=== PATIENT | female | born 1935 | race Caucasian/White ===

== ENCOUNTER 2017-07-22 12:30 | Observation (INO) ==
[2017-07-22 13:57] LABS: Basophils % 0.6 %; Hematocrit 43.8 % (35.3-44.9); Hemoglobin 14.4 g/dL (11.5-15.4); Immature Granulocytes % 0.4 % (0-4); Lymphocytes # 0.4 K/mcL (0.6-4.6); Lymphocytes % 6.4 %; Mean Corpuscular HGB Conc 32.9 g/dL (31.6-35.5); Mean Corpuscular Hemoglobin 30.3 pg (28.0-33.3); Mean Corpuscular Volume 92.2 fL (83.0-100.0); Mean Platelet Volume 10.6 fL (9.4-12.4); Monocytes # 0.5 K/mcL (0.0-1.3); Monocytes % 7.3 %; Neutrophils # 5.9 K/mcL (1.6-8.9); Platelet Count 249 K/mcL (140-400); Red Blood Count 4.75 M/mcL (3.82-4.97); Red Cell Distribution Width 14.2 % (11.5-14.5); Segmented Neutrophils % 85.3 %
[2017-07-22 14:21] LABS: Calcium 9.3 mg/dL (8.6-10.3)
[2017-07-22 14:23] LABS: Troponin I 0.06 ng/mL (< 0.04)
[2017-07-22 15:10] LABS: Bilirubin,Urine Negative (Negative); Blood,Urine Moderate (Negative); Clarity,Urine Cloudy (Clear); Color,Urine Yellow (Yellow); Glucose,Urine (UA) Normal (Normal); Ketones,Urine Negative (Negative); Leukocyte Esterase,Urine Negative (Negative); Nitrite,Urine Negative (Negative); Protein,Urine Negative (Neg-Trace); Specific Gravity,Urine 1.022 (1.010-1.025); Urobilinogen,Urine Normal (Normal)
[2017-07-22 15:14] LABS: Bacteria,Urine Many per hpf (None-Few); Hyaline Casts,Urine None Seen per lpf (None-Few); Squamous Epithelial Cell,Urine Many per lpf (None-Few)
[2017-07-22 15:21] LABS: INR 1.9; Prothrombin Time 21.1 Seconds (9.4-12.1)
[2017-07-22 15:23] LABS: Activated Partial Thrombo Time 34.2 Seconds (26.0-36.0)
[2017-07-22] MEDS ORDERED: Aspirin 81 MG TAB.CHEW PO STA (15:25)
--- NOTE | 2017-07-22 16:28 | Emergency Department Note ---
Disposition Clinical Impression: Elevated troponin, Weakness Chest pain Qualifiers: Chest pain type: unspecified Qualified Code(s): R07.9 - Chest pain, unspecified Disposition: Admitted As Inpatient Condition: Good Time of Disposition: 16:54 General Adult HPI - General Chief complaint: ED Weakness Stated complaint: "Not feeling well" Time Seen by Provider: 07/22/17 14:29 Source: patient, family Limitations: altered mental status Nursing Notes Reviewed: Yes Vital Signs Reviewed: Yes - History of Present Illness HPI Narrative: Patient presents emergency room in the care of family member for evaluation of generalized malaise and weakness. Patient has been describing not feeling well over the last several days. After discussion with the family and the patient she does disclose that she has had intermittent chest pain no shortness of breath no nausea no vomiting no diarrhea. Onset (ago): day(s) Radiation: non-radiation Pain Scale: 0 Improves with: nothing Worsens with: nothing Associated symptoms: Reports: denies other symptoms - Related Data Home Medications Medication Instructions Recorded Confirmed FLUoxetine HCl [Prozac] 40 mg PO DAILY 02/03/16 07/22/17 Memantine HCl 10 mg PO BID 02/03/16 07/22/17 Metoprolol Succinate [Toprol Xl] 12.5 mg PO DAILY 02/03/16 07/22/17 Potassium Chloride [K-Tab ER] 40 meq PO DAILY 02/03/16 07/22/17 Simvastatin [Zocor] 40 mg PO HS 02/03/16 07/22/17 glipiZIDE [Glipizide ER] 10 mg PO DAILY 02/03/16 07/22/17 metFORMIN [Glucophage] 500 mg PO DAILY 02/03/16 07/22/17 Furosemide [Lasix] 20 mg PO DAILY 07/22/17 07/22/17 Warfarin [Coumadin] 1 mg PO Q72H 07/22/17 07/22/17 Warfarin [Coumadin] 1 mg PO Q72H 07/22/17 07/22/17 Warfarin [Coumadin] 2 mg PO Q72H 07/22/17 07/22/17 Allergies Allergy/AdvReac Type Severity Reaction Status Date / Time Sulfa (Sulfonamide Allergy Hallucinati Verified 02/03/16 10:23 Antibiotics) ng All systems ED: reviewed and negative except as stated. Review of Systems: As Per HPI Constitutional: Denies: fever, chills, weakness Cardiovascular: Reports: chest pain. Denies: palpitations, dyspnea on exertion , orthopnea, edema Respiratory: Denies: cough, dyspnea, wheezes Gastrointestinal: Denies: abdominal pain, nausea, vomiting Genitourinary: Denies: urgency, dysuria, frequency Musculoskeletal: Denies: back pain, neck pain Neurological: Denies: headache Past Medical History - Past Medical History Attestation: Yes The following information was validated with the patient. Source: patient Medical history: Reports: non-contributory, atrial fibrillation, CHF, coronary artery disease, CVA, dementia, diabetes, hyperlipidemia, hypertension, myocardial infarction Psychiatric history: Reports: no psych history - Social History Smoking Status: Former smoker Smokeless Tobacco Status: No Alcohol use: Reports: none Drug use: Reports: none Physical Exam - General Limitations: altered mental status General appearance: alert, in no apparent distress - ENT ENT exam: normal exam, normal oropharynx, mucous membranes moist - Neck Neck exam: Present: normal inspection, full ROM, trachea midline. Absent: tenderness, meningismus, lymphadenopathy - Chest Chest inspection: Present: normal inspection, symmetric chest wall rise. Absent : tenderness - Respiratory Respiratory exam: Present: normal lung sounds bilaterally. Absent: respiratory distress, wheezes, accessory muscle use - Cardiovascular Cardiovascular exam: Present: regular rate, normal rhythm, normal heart sounds - Abdominal Exam Abdominal exam: Present: soft, Non-Tender, normal bowel sounds. Absent: tenderness, distention, guarding, rebound, rigidity, Montaño's sign, Rovsing's sign, tenderness at McBurney's Point - Extremities Exam Extremities exam: Present: normal inspection - Back Exam Back exam: Present: normal inspection, full ROM - Neurological Exam Neurological exam: Present: alert, oriented X3, CN II-XII intact - Skin Skin exam: Present: warm, dry, intact, normal color Course Course Narrative: Patient seen and examined the time of arrival. See history of present illness. 81-year-old female presents to the emergency room for evaluation of chest pain and generalized malaise. Patient describes weakness in symptoms over the last several days. Patient is difficult to communicate with because she does not interact well. This is baseline per the family who is with her at the bedside. Patient denies any other trauma or injuries. The family is with her as she is describe some intermittent chest pain over the last several days. When I conversed with her she does answer questions and appears to be appropriate at this time. She denies any shortness of breath when she has had chest pain. She denies any nausea vomiting or diarrhea. She falls commands appropriately. On physical exam her pupils are equal round reactive to light her extraocular muscles are intact. Her lungs are clear heart is regular abdomen is soft nontender nondistended with no guarding no rigidity. She has no signs of pitting edema or swelling. Patient is otherwise resting comfortably in the bed no apparent distress at this time. Patient was brought back to the room here in the emergency department approximately 2 hours after she arrived here. Patient was found to have an elevated troponin by screening labs were started out the triage process. Her troponin was 0.06. Patient's EKG was collected just as she arrived to the emergency had. This was 2 hours after arrival. EKG shows ischemic changes and multiple leads. It is consistent with her previous EKG but she does not have any acute signs of ST segment elevation. I did send it for about the on-call auto travel counselor. He agrees and does not appear to be any acute signs of a STEMI but there was concern for ischemia. Patient is on Coumadin with an INR of 1.9. Labs are otherwise unremarkable this point urine does not show any acute signs of infection considering she does not have symptoms. There is gross contamination. Patient will be admitted for definitive management of what appears to be chest pain with unknown etiology at this time. Patient had CT imaging of the head and chest x-ray completed with no acute pathology noted that time as well. Patient is otherwise currently stable. - Reevaluation(s) Reevaluation #1: No critical care applied to this patient's treatment course at this time. Hospitalist Dr. Vasquez I reviewed the patient's presentation symptoms of medical history. They have no other recommendations or concerns at this time. Admission process will be completed at this point for definitive management of cardiac evaluation. Time: 16:52 Vital Signs Temperature 97.5 F L 07/22/17 12:51 Pulse Rate 66 07/22/17 12:51 Respiratory Rate 18 07/22/17 12:51 Blood Pressure 126/77 07/22/17 12:51 O2 Sat by Pulse Oximetry 96 07/22/17 12:51 Temperature 97.5 F L 07/22/17 12:51 Pulse Rate 66 07/22/17 12:51 Respiratory Rate 18 07/22/17 12:51 Blood Pressure 126/77 07/22/17 12:51 O2 Sat by Pulse Oximetry 96 07/22/17 12:51 Oxygen Delivery Oxygen Delivery Room Air Medical Decision Making - MDM Narrative Medical decision making narrative: Chest pain, generalized malaise - Medical Records Medical records reviewed: Yes I reviewed the patient's medical records. - Lab Data Lab results reviewed: Yes I reviewed the patient's lab results. Result diagrams: 07/22/17 13:31 07/22/17 13:31 Lab Results 07/22/17 07/22/17 07/22/17 Range/Units 13:31 13:31 13:31 WBC 6.9 (4.3-11.1) K/mcL RBC 4.75 (3.82-4.97) M/mcL Hgb 14.4 (11.5-15.4) g/dL Hct 43.8 (35.3-44.9) % MCV 92.2 (83.0-100.0) fL MCH 30.3 (28.0-33.3) pg MCHC 32.9 (31.6-35.5) g/dL RDW 14.2 (11.5-14.5) % Plt Count 249 (140-400) K/mcL MPV 10.6 (9.4-12.4) fL Immature Gran % 0.4 (0-4) % Seg Neutrophils % 85.3 % Lymphocytes % 6.4 % Monocytes % 7.3 % Eosinophils % 0.0 % Basophils % 0.6 % Neutrophils # 5.9 (1.6-8.9) K/mcL Lymphocytes # 0.4 L (0.6-4.6) K/mcL Monocytes # 0.5 (0.0-1.3) K/mcL Eosinophils # 0.0 (0.0-0.6) K/mcL Basophils # 0.0 (0.0-0.2) K/mcL PT 21.1 H (9.4-12.1) Seconds INR 1.9 APTT 34.2 (26.0-36.0) Seconds Sodium 137 (136-145) mEq/L Potassium 4.0 (3.5-5.1) mEq/L Chloride 104 (98-107) mEq/L Carbon Dioxide 23 (23-29) mEq/L BUN 18 (8-23) mg/dL Creatinine 1.23 H (0.60-1.20) mg/dL Est GFR ( Amer) 51 L (> 60) Est GFR (Non-Af Amer) 42 L (> 60) BUN/Creatinine Ratio 15 (6-26) Glucose 219 H (70-105) mg/dL Calculated Osmolality 293 (280-300) Calcium 9.3 (8.6-10.3) mg/dL Troponin I 0.06 H* (< 0.04) ng/mL Urine Color (Yellow) Urine Clarity (Clear) Urine pH (5.0-8.0) pH Units Ur Specific [place] (1.010-1.025) Urine Protein (Neg-Trace) mg/dL Urine Glucose (UA) (Normal) mg/dL Urine Ketones (Negative) mg/dL Urine Blood (Negative) Urine Nitrite (Negative) Urine Bilirubin (Negative) Urine Urobilinogen (Normal) mg/dL Ur Leukocyte Esterase (Negative) Urine Microscopic RBC (0-3) per hpf Urine Microscopic WBC (0-3) per hpf Ur Squamous Epith Cells (None-Few) per lpf Urine Bacteria (None-Few) per hpf Hyaline Casts (None-Few) per lpf Ur Culture Indicated? (NO) 07/22/17 Range/Units 15:05 WBC (4.3-11.1) K/mcL RBC (3.82-4.97) M/mcL Hgb (11.5-15.4) g/dL Hct (35.3-44.9) % MCV (83.0-100.0) fL MCH (28.0-33.3) pg MCHC (31.6-35.5) g/dL RDW (11.5-14.5) % Plt Count (140-400) K/mcL MPV (9.4-12.4) fL Immature Gran % (0-4) % Seg Neutrophils % % Lymphocytes % % Monocytes % % Eosinophils % % Basophils % % Neutrophils # (1.6-8.9) K/mcL Lymphocytes # (0.6-4.6) K/mcL Monocytes # (0.0-1.3) K/mcL Eosinophils # (0.0-0.6) K/mcL Basophils # (0.0-0.2) K/mcL PT (9.4-12.1) Seconds INR APTT (26.0-36.0) Seconds Sodium (136-145) mEq/L Potassium (3.5-5.1) mEq/L Chloride (98-107) mEq/L Carbon Dioxide (23-29) mEq/L BUN (8-23) mg/dL Creatinine (0.60-1.20) mg/dL Est GFR ( Amer) (> 60) Est GFR (Non-Af Amer) (> 60) BUN/Creatinine Ratio (6-26) Glucose (70-105) mg/dL Calculated Osmolality (280-300) Calcium (8.6-10.3) mg/dL Troponin I (< 0.04) ng/mL Urine Color Yellow (Yellow) Urine Clarity Cloudy A (Clear) Urine pH 5.0 (5.0-8.0) pH Units Ur Specific [place] 1.022 (1.010-1.025) Urine Protein Negative (Neg-Trace) mg/dL Urine Glucose (UA) Normal (Normal) mg/dL Urine Ketones Negative (Negative) mg/dL Urine Blood Moderate H (Negative) Urine Nitrite Negative (Negative) Urine Bilirubin Negative (Negative) Urine Urobilinogen Normal (Normal) mg/dL Ur Leukocyte Esterase Negative (Negative) Urine Microscopic RBC 5-15 H (0-3) per hpf Urine Microscopic WBC 3-5 H (0-3) per hpf Ur Squamous Epith Cells Many H (None-Few) per lpf Urine Bacteria Many H (None-Few) per hpf Hyaline Casts None Seen (None-Few) per lpf Ur Culture Indicated? NO (NO) - Radiology Data Radiology results reviewed: Yes I reviewed the patient's radiology results. Chest x-ray and CT that are unremarkable this time for acute intracranial or intrathoracic related pathology - EKG Data EKG #1 EKG attestation: Yes I reviewed and interpreted this EKG. EKG results narrative: EKG shows atrial fibrillation. There is progression of ST segment depression in multiple leads including 1,2 V2 V3 V4 V5 and V6. There is slight elevation in aVR which is consistent with previous. EKG was reviewed from previous EKG on 06/28/16 with similar morphology. No acute signs of ST segment elevation. Intervals are within normal limits. QRS duration is 112. QTC is 437. [place] appears to be stable..
[2017-07-22] MEDS ORDERED: Acetaminophen 325 MG TABLET PO PRN (19:50)
[2017-07-22] MEDS ORDERED: Naloxone 0.4 MG/ML INJ IVP PRN (19:50)
--- NOTE | 2017-07-22 21:03 | Internal Med History&Physical ---
Date of Encounter: 07/22/17 Time of Encounter: 18:40 Assessment and Plan (1) Chest pain Current visit: Yes Status: Acute Intermittent; mild Troponin leak; EKG reviewed independently- normal sinus rhythm with diffuse T wave inversions in lateral and precordial leads- old change; case d/w Cardiology by ER physician, recommend to continue ASA, beta leandro and Coumadin; serial Troponins and Telemetry monitoring; check lipid profile; check TTE; Qualifiers: Chest pain type: unspecified Qualified Code(s): R07.9 - Chest pain, unspecified (2) Weakness Current visit: Yes Status: Acute likely dehydration due to poor oral intake; start gentle IV hydration; PT/OT evaluation; fall precautions and supportive care; (3) Atrial fibrillation Current visit: Yes Status: Chronic continue Telemetry monitoring; continue beta leandro and anticoagulation with Coumadin; Qualifiers: Atrial fibrillation type: paroxysmal Qualified Code(s): I48.0 - Paroxysmal atrial fibrillation (4) Coronary artery disease Current visit: Yes Status: Chronic continue ASA, Coumadin, beta leandro and statin; Qualifiers: Coronary Disease-Associated Artery/Lesion type: bypass graft [place] vs. transplanted heart: [place] heart Associated angina: without angina Qualified Code(s): I25.810 - Atherosclerosis of coronary artery bypass graft(s) without angina pectoris (5) Essential hypertension Current visit: Yes Status: Chronic BP acceptable; hold diuretics due to weakness; (6) Hyperlipidemia Current visit: Yes Status: Chronic Qualifiers: Hyperlipidemia type: unspecified Qualified Code(s): E78.5 - Hyperlipidemia , unspecified (7) Diabetes mellitus Current visit: Yes Status: Chronic Blood sugar on BMP slightly elevated; continue Accucheck blood glucose monitoring with sliding scale insulin as needed; hold oral hypoglycemics for now ; diabetic diet; Qualifiers: Diabetes mellitus type: type 2 Diabetes mellitus long-term insulin use: without wic site coordinator use Diabetes mellitus complication status: with hyperglycemia Qualified Code(s): E11.65 - Type 2 diabetes mellitus with hyperglycemia (8) Dementia Current visit: Yes Status: Chronic Qualifiers: Dementia type: Alzheimer's disease Alzheimer's disease onset: late-onset Dementia behavioral disturbance: without behavioral disturbance Qualified Code (s): G30.1 - Alzheimer's disease with late onset; F02.80 - Dementia in other diseases classified elsewhere without behavioral disturbance; F02.80 - Dementia in other diseases classified elsewhere without behavioral disturbance; F02.80 - Dementia in other diseases classified elsewhere without behavioral disturbance (9) Peripheral arterial disease Current visit: Yes Status: Chronic (10) CKD (chronic kidney disease) Current visit: Yes Status: Suspected likely has CKD-stage 3; slightly worse creatinine; continue IV hydration, hold Metformin and Lasix; monitor closely; Qualifiers: Chronic kidney disease stage: stage 3 (moderate) Qualified Code(s): N18.3 - Chronic kidney disease, stage 3 (moderate) Internal Medicine - H&P: HPI Chief complaint: Weakness Admitted From: Emergency Dept Plans for Post Hospital Care: Home History of present illness: Ms. Diaz is a 81 year old female with history of atrial fibrillation, coronary artery disease, who was brought in by family with complaints of generalized weakness and malaise. Patient is unable to provide history due to underlying dementia, which is obtained with the help of her daughter at bedside. Patient is ADL dependent and requires 24-hour supervision at home, lives with her daughter, ambulates with walker. She has been reporting generalized weakness and malaise for the last few days, unable to ambulate or do her transfers without help. She reported intermittent retrosternal chest pain, cannot elaborate further. She has associated poor appetite, lethargy and not feeling well. She has intermittent cough with clear mucus and some shortness of breath. No fever, chills, nausea, vomiting or diarrhea. Past Med Surg Social Fam HX - Past Medical History Medical history: atrial fibrillation, CHF, coronary artery disease, CVA, dementia, diabetes, hyperlipidemia, hypertension, myocardial infarction, peripheral artery disease Psychiatric history: no psych history - Past Surgical History Surgical History: coronary bypass (CABG), hysterectomy, LE stent (s) - Social History Smoking Status: Former smoker Smokeless Tobacco Status: No Alcohol use: none Drug use: none Occupational status: retired Current living situation: Home, With Family Activity Level: Uses cane/walker Recent Out of Country Travel Within the Last 8 Weeks: No Exposure or Possible Exposure to Illness During Travel: No - Additional Family History Additional family history: Noncontributory Internal Medicine - H&P: Meds FLUoxetine HCl [Prozac] 40 mg PO DAILY 02/03/16 [History] Memantine HCl 10 mg PO BID 02/03/16 [History] Metoprolol Succinate [Toprol Xl] 12.5 mg PO DAILY 02/03/16 [History] Potassium Chloride [K-Tab ER] 40 meq PO DAILY 02/03/16 [History] Simvastatin [Zocor] 40 mg PO HS 02/03/16 [History] glipiZIDE [Glipizide ER] 10 mg PO DAILY 02/03/16 [History] metFORMIN [Glucophage] 500 mg PO DAILY 02/03/16 [History] Furosemide [Lasix] 20 mg PO DAILY 07/22/17 [History] Warfarin [Coumadin] 1 mg PO Q72H 07/22/17 [History] Warfarin [Coumadin] 1 mg PO Q72H 07/22/17 [History] Warfarin [Coumadin] 2 mg PO Q72H 07/22/17 [History] 3 Allergy/AdvReac Type Severity Reaction Status Date / Time Sulfa (Sulfonamide Allergy Hallucinati Verified 02/03/16 10:23 Antibiotics) ng All Systems PM: A 10-system review of systems was performed and is negative for pertinent findings except as documented above in the HPI. - Constitutional Constitutional: anorexia, fatigue, malaise, weakness - EENT Eyes: no change in vision, no discharge, no pain, no photophobia Ears: no ear discharge, no ear pain, no tinnitus Nose, mouth and throat: no dysphagia, no nasal discharge, no neck pain, no sore throat - Cardiovascular Cardiovascular ROS IM: chest pain, dyspnea - Respiratory Respiratory: cough - Gastrointestinal Gastrointestinal: no abdominal pain, no diarrhea, no hematemesis, no hematochezia, no melena, no nausea, no vomiting - Genitourinary Genitourinary: no change in urinary stream, no dysuria, no flank pain, no hematuria - Musculoskeletal Musculoskeletal ROS IM: no numbness, no tingling - Integumentary Integumentary IM: no rash, no unusual bruising - Neurological Neurological ROS: no confusion, no convulsions, no focal weakness, no numbness, no tingling, no tremor(s) - Hematologic/Lymphatic Hematologic/Lymphatic: no easy bruising - Constitutional Vitals: Temp Pulse Resp BP Pulse Ox 99.0 F 54 16 139/98 97 07/22/17 19:33 07/22/17 19:33 07/22/17 19:33 07/22/17 19:33 07/22/17 19:33 General appearance: Present: A&O X 1. Absent: answers questions appropriately - Respiratory Respiratory exam: Present: CTAB. Absent: accessory muscle use, rales, rhonchi, wheezes - Cardiovascular Cardiovascular exam: Present: RRR, +S1, +S2. Absent: diastolic murmur, gallop, rubs, systolic murmur - GI/Abdominal GI/Abdominal exam: Present: normal bowel sounds, soft, no peritoneal signs. Absent: distended, tenderness - Extremities Exam Extremities exam: Present: full ROM, pedal edema (trace), warm, radial pulses palpable and symmetrical. Absent: calf tenderness, cyanotic - Neurological Exam Neurological exam: Present: CN II-XII intact, no focal deficits (diffusely decreased motor power B/L). Absent: pronater drift, facial droop, speech deficit Internal Med - H&P Results - Labs CBC & Chem 7: 07/22/17 13:31 07/22/17 13:31 Labs: Cardiac Enzymes 07/22/17 Range/Units 20:12 Troponin I 0.04 H* (< 0.04) ng/mL
[2017-07-22] MEDS ORDERED: *HR* Warfarin 1 MG TABLET PO ONE (21:15)
[2017-07-22] MEDS: Ringers Solution, Lactated 1,000 ML IVC SCH (21:52)
[2017-07-23 02:10] LABS: Prothrombin Time 22.3 Seconds (9.4-12.1)
[2017-07-23 02:21] LABS: Calcium 9.3 mg/dL (8.6-10.3); Chol/HDL Ratio 4.1 (0-4.9); Magnesium 1.9 mg/dL (1.6-2.6); Potassium 3.7 mEq/L (3.5-5.1)
[2017-07-23 05:48] LABS: Basophils # 0.1 K/mcL (0.0-0.2); Basophils % 0.7 %; Eosinophils % 0.3 %; Hematocrit 41.2 % (35.3-44.9); Hemoglobin 13.1 g/dL (11.5-15.4); Immature Granulocytes % 0.5 % (0-4); Lymphocytes # 0.7 K/mcL (0.6-4.6); Lymphocytes % 9.2 %; Mean Corpuscular HGB Conc 31.8 g/dL (31.6-35.5); Mean Corpuscular Hemoglobin 29.6 pg (28.0-33.3); Mean Platelet Volume 10.7 fL (9.4-12.4); Monocytes # 0.7 K/mcL (0.0-1.3); Monocytes % 9.5 %; Neutrophils # 5.9 K/mcL (1.6-8.9); Platelet Count 218 K/mcL (140-400); Red Blood Count 4.43 M/mcL (3.82-4.97); Red Cell Distribution Width 14.2 % (11.5-14.5); Segmented Neutrophils % 79.8 %
[2017-07-23] MEDS ORDERED: amLODIPine 5 MG TABLET PO SCH (09:15)
--- NOTE | 2017-07-23 09:19 | Internal Med Progress Note ---
<BryanKobi - Last Filed: 07/23/17 13:20> Date of Encounter: 07/23/17 Time of Encounter: 09:00 - Assessment and plan (1) Chest pain Current Visit: Yes Status: Acute Assessment and plan: Intermittent; mild Troponin leak; EKG reviewed independently- normal sinus rhythm with diffuse T wave inversions in lateral and precordial leads- old change; case d/w Cardiology by ER physician, recommend to continue ASA, beta leandro and Coumadin; serial Troponins and Telemetry monitoring; Update: Echocardiogram shows LVEF 40-45%. LV systolic dysfunction with regional variations - hypokinesis of the inferolateral wall. Qualifiers: Chest pain type: unspecified Qualified Code(s): R07.9 - Chest pain, unspecified (2) Weakness Current Visit: Yes Status: Acute Assessment and plan: Likely dehydration due to poor oral intake; start gentle IV hydration; PT/OT evaluation; fall precautions and supportive care; (3) Atrial fibrillation Current Visit: Yes Status: Chronic Assessment and plan: continue Telemetry monitoring; continue beta leandro and anticoagulation with Coumadin; Qualifiers: Atrial fibrillation type: paroxysmal Qualified Code(s): I48.0 - Paroxysmal atrial fibrillation (4) Coronary artery disease Current Visit: Yes Status: Chronic Assessment and plan: continue ASA, Coumadin, beta leandro and statin; Qualifiers: Coronary Disease-Associated Artery/Lesion type: bypass graft [place] vs. transplanted heart: [place] heart Associated angina: without angina Qualified Code(s): I25.810 - Atherosclerosis of coronary artery bypass graft(s) without angina pectoris (5) Essential hypertension Current Visit: Yes Status: Chronic Assessment and plan: Blood pressure elevated 158/87. Lasix on hold due to creatinine function. Patient does not seem to be fluid overloaded. - We will start amlodipine 5 mg by mouth daily. (6) Hyperlipidemia Current Visit: Yes Status: Chronic Assessment and plan: LDL of 101. Qualifiers: Hyperlipidemia type: unspecified Qualified Code(s): E78.5 - Hyperlipidemia , unspecified (7) Diabetes mellitus Current Visit: Yes Status: Chronic Assessment and plan: Glucose controlled at 81. - continue Accucheck blood glucose monitoring with sliding scale insulin as needed; hold oral hypoglycemics for now; diabetic diet; Qualifiers: Diabetes mellitus type: type 2 Diabetes mellitus prison insulin use: without prison use Diabetes mellitus complication status: with hyperglycemia Qualified Code(s): E11.65 - Type 2 diabetes mellitus with hyperglycemia (8) Dementia Current Visit: Yes Status: Chronic Qualifiers: Dementia type: Alzheimer's disease Alzheimer's disease onset: late-onset Dementia behavioral disturbance: without behavioral disturbance Qualified Code (s): G30.1 - Alzheimer's disease with late onset; F02.80 - Dementia in other diseases classified elsewhere without behavioral disturbance; F02.80 - Dementia in other diseases classified elsewhere without behavioral disturbance; F02.80 - Dementia in other diseases classified elsewhere without behavioral disturbance (9) CKD (chronic kidney disease) Current Visit: Yes Status: Suspected Assessment and plan: Creatinine function improved from 1.23 down to 1.10. - continue IV hydration, hold Metformin and Lasix; monitor closely Qualifiers: Chronic kidney disease stage: stage 3 (moderate) Qualified Code(s): N18.3 - Chronic kidney disease, stage 3 (moderate) (10) DVT prophylaxis Current Visit: Yes Status: Acute Assessment and plan: On Coumadin. - Subjective Interval history: Seen today patient was in A&OX1. She denies any chest pains, shortness of breath , fever, chills, or abdominal pain. - Constitutional Vitals: Temp Pulse Resp BP Pulse Ox 98.0 F 67 15 158/87 92 07/23/17 06:30 07/23/17 06:30 07/23/17 06:30 07/23/17 06:30 07/23/17 06:59 General appearance: Present: A&O X 1, no acute distress. Absent: answers questions appropriately - Respiratory Respiratory exam: Present: CTAB. Absent: accessory muscle use, rales, rhonchi, wheezes - Cardiovascular Cardiovascular exam: Present: RRR, +S1, +S2. Absent: diastolic murmur, gallop, rubs, systolic murmur - GI/Abdominal GI/Abdominal exam: Present: normal bowel sounds, soft, no peritoneal signs. Absent: distended, tenderness - Extremities Exam Extremities exam: Present: warm, radial pulses palpable and symmetrical. Absent : calf tenderness, cyanotic, pedal edema Internal Medicine: Result - Labs CBC & Chem 7: 07/23/17 04:44 07/23/17 01:40 Labs: Short CBC 07/23/17 Range/Units 04:44 WBC 7.4 (4.3-11.1) K/mcL Hgb 13.1 (11.5-15.4) g/dL Hct 41.2 (35.3-44.9) % Plt Count 218 (140-400) K/mcL Neutrophils # 5.9 (1.6-8.9) K/mcL BMP 07/23/17 01:40 Sodium 138 Potassium 3.7 Chloride 107 Carbon Dioxide 22 L BUN 23 Creatinine 1.10 Glucose 81 Calcium 9.3 Cardiac Enzymes 07/22/17 07/23/17 07/23/17 Range/Units 20:12 01:40 07:31 Troponin I 0.04 H* 0.05 H* 0.05 H* (< 0.04) ng/mL - ABG Interpretation ABG results: PT/INR, D-dimer PT 22.3 Seconds (9.4-12.1) H 07/23/17 01:40 Consult Discharge Plan - Plan Referrals: Óscar Gonzalez Jr, MD [Primary Care Provider] - <Carlin Castle H - Last Filed: 07/23/17 14:11> Date of Encounter: 07/23/17 - Constitutional Vitals: Temp Pulse Resp BP Pulse Ox 97.4 F L 71 15 155/86 93 07/23/17 10:00 07/23/17 10:00 07/23/17 10:00 07/23/17 10:00 07/23/17 10:00 Internal Medicine: Result - Labs CBC & Chem 7: 07/23/17 04:44 07/23/17 01:40 - ABG Interpretation ABG results: PT/INR, D-dimer PT 22.3 Seconds (9.4-12.1) H 07/23/17 01:40 - Impressions Impressions Echocardiogram 07/23/17 10:00 Impressions: LVEF 40-45%. LV systolic dysfunction with regional variations - hypokinesis of the inferolateral wall. Moderate concentric left ventricular hypertrophy. Mildly dilated left ventricle. Normal right ventricular structure and function. Moderate mitral regurgitation. Mild tricuspid regurgitation. Mild pulmonary hypertension. Left Ventricular Wall Motion: Rest Echo Findings The apex, apical inferior, mid inferior, basal inferior, apical anterior, mid anterior, basal anterior, apical septal, mid inferior septal, basal inferior septal, apical lateral, mid anterior lateral, basal anterior lateral, mid anterior septal, mid inferior lateral, basal anterior septal and basal inferior lateral [place] were hypokinetic. Findings: Study Quality * Technically adequate exam. ECG Findings * Atrial fibrillation. Left Ventricle * LVEF 40-45%. * Moderate concentric left ventricular hypertrophy. * Mildly dilated left ventricle. Right Ventricle * Normal right ventricular structure and function. Left Atrium * Severely dilated left atrium. Right Atrium * Normal right atrial size. Mitral Valve * No mitral stenosis. * Moderate mitral regurgitation. * Mildly calcified mitral valve leaflets. Aortic Valve * Trace aortic regurgitation. * Trileaflet aortic valve. * No aortic stenosis. Tricuspid Valve * Tricuspid valve not well visualized. * Mild tricuspid regurgitation. * Estimated RA pressure is 8 mmHg. * Estimated RVSP is 37 mmHg. * Mild pulmonary hypertension. Pulmonic Valve * Pulmonic valve not well visualized. * No pulmonic stenosis. * No pulmonic regurgitation. Pulmonary Artery * Pulmonary artery not well visualized. Aorta * Normally sized aortic root. Pericardium * There is no pericardial effusion present. IVC * The IVC is not dilated. * < 50% respiratory change. - Attending Attestation Elevated troponins, possibly secondary to demand ischemia, possible non-STEMI Continue warfarin for now cardiology recommendations appreciated Severe dementia I examined this patient and my medical decision-making was reviewed with the Resident Physician. I agree with the documented findings, disposition and treatment plan as described except to the extent set forth below.
--- NOTE | 2017-07-23 09:42 | Electrocardiograph Report ---
[facility] Test Date: 2017-07-22 Pat Name: Lorie Diaz Department: 104 Room: 2NE16 Gender: F Scale Clerk: NAY : 1935 Requested By: Enmanuel Davison Order Number: [id number] Reading MD: Pankaj Tello MD Measurements Intervals [place] Rate: 68 P: LA: 0 QRS: 46 QRSD: 112 T: 158 QT: 420 QTc: 437 Interpretive Statements ATRIAL FIBRILLATION MODERATE INTRAVENTRICULAR CONDUCTION DELAY ST DEVIATION AND MODERATE T-WAVE ABNORMALITY, CONSIDER LATERAL ISCHEMIA; present 06/2016 Electronically Signed On 07-23-2017 9:41:09 EDT by Pankaj Tello MD
--- NOTE | 2017-07-23 10:25 | Cardiology Consult Note ---
Date of Encounter: 07/23/17 Time of Encounter: 08:30 Assessment and Plan (1) Chest pain Current Visit: Yes Status: Acute Retrosternal chest pain that began yesterday. Due to dementia the patient was unable to elaborate on quality, duration, etc of chest pain. troponin 0.05, 0.04, 0.06 stable EKG demonatrated NSR HR 68, ST depression in inferior and lateral leads, T wave inversion in anterior and septal leads, Unchanged from previous in 2017. -06/25/2017 TTE: Impressions: LVEF 40-45%. LV systolic dysfunction with regional variations - hypokinesis of the inferolateral wall. Moderate concentric left ventricular hypertrophy. Mildly dilated left ventricle. Normal right ventricular structure and function. Moderate mitral regurgitation. Mild tricuspid regurgitation. Mild pulmonary hypertension. Per cardiology: -plan to optimize medical management as opposed to aggressive therapy -agree with asa and norvasc -will consider adding imdur tomorrow -continue simvastatin, toprol, and lasix if Cr tolerates -will continue to follow Qualifiers: Chest pain type: unspecified Qualified Code(s): R07.9 - Chest pain, unspecified (2) Elevated troponin Current Visit: Yes Status: Acute Troponin 0.05, 0.04, 0.06 (stable) -continue to monitor (3) Atrial fibrillation Current Visit: Yes Status: Chronic History of A.fib on anticoagulation with coumadin and rate controlled with Toprol. [id number] score 9 (female, age, CHF, HTN, DM, CVA, AR) -continue to monitor Qualifiers: Atrial fibrillation type: paroxysmal Qualified Code(s): I48.0 - Paroxysmal atrial fibrillation (4) Coronary artery disease Current Visit: Yes Status: Chronic 2005 CABG with 5 vessel 06/2011 Pharm stress ECG: sinus jose, non diagnostic for ischemia due to non specific ST and T wave changes. 07/2013 TTE: EF 50%, mild inf HK, severely dilated LA moderate MR. -taking Toprol, lasix, simvastatin Qualifiers: Coronary Disease-Associated Artery/Lesion type: bypass graft [place] vs. transplanted heart: [place] heart Associated angina: without angina Qualified Code(s): I25.810 - Atherosclerosis of coronary artery bypass graft(s) without angina pectoris (5) Diabetes mellitus Current Visit: Yes Status: Chronic History of diabetes. Management per primary team. 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 taking namenda Qualifiers: Dementia type: Alzheimer's disease Alzheimer's disease onset: late-onset Dementia behavioral disturbance: without behavioral disturbance Qualified Code (s): G30.1 - Alzheimer's disease with late onset; F02.80 - Dementia in other diseases classified elsewhere without behavioral disturbance; F02.80 - Dementia in other diseases classified elsewhere without behavioral disturbance; F02.80 - Dementia in other diseases classified elsewhere without behavioral disturbance Discussion w patient/family: The assessment and plan as outlined above was discussed with the patient and/or family members who expressed understanding and agreement. All questions were answered. Thank you for involving us in the care of your patient. Please call with any questions. History of Present Illness Consult date: 07/23/17 Requesting physician: Claudette Vasquez Consult reason: Chest pain, troponin leak, on coumadin Chief complaint: weakness History of present illness: Ms. Diaz is a 82 year old female with PMH CABG 2006, A.fib, CHF, dementia, HTN, DM who presented to [facility] complaining of malaise and generalized weakness for several days. She also reported retrosternal chest pain that she was unable to elaborate on. She denied dyspnea, fever, chills, nausea, vomiting, diarrhea. Due to dementia she is alert and oriented to person only. History was primarily taken from medical records. She lives with her daughter and is unable to ambulate on her own. Upon my examination she stated she did have chest pain but no longer does and again was unable to elaborate on quality and duration. Her family is not at bedside. She had a mildly elevated troponin 0.05, 0.04, 0.06. EKG demonatrated NSR HR 68, ST depression in inferior and lateral leads, T wave inversion in anterior and septal leads, Unchanged from previous in 2017. An echo was ordered. She was last seen in cardiology office 06/[address] Zapien for a f/u however her emergency physician at the time was Dr. Sierra. 06/2011 Pharm stress ECG: sinus jose, non diagnostic for ischemia due to non specific ST and T wave changes. 07/2013 TTE: EF 50%, mild inf HK, severely dilated LA moderate MR. Past Med Surg Social Fam HX - Past Medical History Medical history: atrial fibrillation, CHF, coronary artery disease, CVA, dementia, diabetes, hyperlipidemia, hypertension, myocardial infarction, peripheral artery disease Psychiatric history: no psych history - Past Surgical History Surgical History: coronary bypass (CABG), hysterectomy, LE stent (s) - Social History Smoking Status: Former smoker Smokeless Tobacco Status: No Alcohol use: none Drug use: none - Family History Mother Family Member Ethnicity: Non- Living Status: Cause of : AR Hx Family Cardiac Disorders: Yes (CAD, CABG, Pacer, CHF) Medications and Allergies FLUoxetine HCl [Prozac] 40 mg PO DAILY 02/03/16 [History] Memantine HCl 10 mg PO BID 02/03/16 [History] Metoprolol Succinate [Toprol Xl] 12.5 mg PO DAILY 02/03/16 [History] Potassium Chloride [K-Tab ER] 40 meq PO DAILY 02/03/16 [History] Simvastatin [Zocor] 40 mg PO HS 02/03/16 [History] glipiZIDE [Glipizide ER] 10 mg PO DAILY 02/03/16 [History] metFORMIN [Glucophage] 500 mg PO DAILY 02/03/16 [History] Furosemide [Lasix] 20 mg PO DAILY 07/22/17 [History] Warfarin [Coumadin] 1 mg PO Q72H 07/22/17 [History] Warfarin [Coumadin] 1 mg PO Q72H 07/22/17 [History] Warfarin [Coumadin] 2 mg PO Q72H 07/22/17 [History] 3 Allergy/AdvReac Type Severity Reaction Status Date / Time Sulfa (Sulfonamide Allergy Hallucinati Verified 02/03/16 10:23 Antibiotics) ng All Systems Review: The remainder of the systems were reviewed and are negative - Constitutional Constitutional: no chills, no fever(s), no headache(s) - EENT Eyes: no loss of vision - Cardiovascular Cardiovascular: diaphoresis, no chest pain with exertion, no palpitations - Respiratory Respiratory: dyspnea - Gastrointestinal Gastrointestinal: no abdominal pain - Neurological Neurological: memory loss Physical Examination General: Conversant, No Apparent Distress HEENT: Mucus Membranes Moist Neck: No JVD Cardiac: Reg Rate and Rhythm, Normal S1 and S2 Lungs: Normal Breath Sounds, Other (diffuse rhonci) Neuro: Alert and responsive (A&Ox1 (person only)) Abdomen: Soft, Non-Tender Skin: No rashes noted on visualized skin Musculoskeletal: No Chest Wall Tenderness Extremities: No Edema Results 07/23/17 04:44 07/23/17 01:40 Consult Discharge Plan - Plan Referrals: Óscar Gonzalez Jr, MD [Primary Care Provider] -
[2017-07-23] MEDS: Metoprolol XL (24 HR) Succ 25 MG TAB.ER.24H PO SCH (11:30)
[2017-07-23] MEDS: FLUoxetine 20 MG CAPSULE PO SCH (11:30)
[2017-07-23] MEDS: Aspirin Enteric Coated 81 MG Tablet PO SCH (11:30)
[2017-07-23] MEDS ORDERED: *HR* Warfarin 1 MG TABLET PO ONE (18:00)
[2017-07-23] MEDS ORDERED: Warfarin perPT PO PRN (18:00)
[2017-07-23] MEDS: Ringers Solution, Lactated 1,000 ML IVC SCH (18:15)
[2017-07-23] MEDS ORDERED: amLODIPine 5 MG TABLET PO ONE (20:00)
[2017-07-24 04:55] LABS: Basophils % 0.6 %; Eosinophils # 0.1 K/mcL (0.0-0.6); Eosinophils % 0.8 %; Hematocrit 38.8 % (35.3-44.9); Hemoglobin 12.8 g/dL (11.5-15.4); Immature Granulocytes % 0.5 % (0-4); Lymphocytes # 0.8 K/mcL (0.6-4.6); Lymphocytes % 11.9 %; Mean Corpuscular Hemoglobin 30.5 pg (28.0-33.3); Mean Corpuscular Volume 92.4 fL (83.0-100.0); Mean Platelet Volume 10.4 fL (9.4-12.4); Monocytes # 0.6 K/mcL (0.0-1.3); Platelet Count 202 K/mcL (140-400); Red Cell Distribution Width 14.4 % (11.5-14.5); Segmented Neutrophils % 77.2 %
[2017-07-24 05:00] LABS: INR 2.2; Prothrombin Time 24.4 Seconds (9.4-12.1)
[2017-07-24 05:09] LABS: BUN/Creatinine Ratio 21 (6-26); Blood Urea Nitrogen 21 mg/dL (8-23); Calcium 8.4 mg/dL (8.6-10.3); Carbon Dioxide 25 mEq/L (23-29); Chloride 108 mEq/L (98-107); Glucose 90 mg/dL (70-105); Osmolality,Calculated 291 (280-300); Potassium 3.3 mEq/L (3.5-5.1); Sodium 139 mEq/L (136-145); eGFR For African Americans > 60 (> 60); eGFR For Non-African Americans 52 (> 60)
--- NOTE | 2017-07-24 08:08 | Discharge Summary ---
Date of Encounter: 07/24/17 Time of Encounter: 08:06 - Discharge Diagnosis (1) Chest pain Priority: Primary Status: Acute Qualifiers: Chest pain type: unspecified Qualified Code(s): R07.9 - Chest pain, unspecified (2) Elevated troponin Priority: Primary Status: Acute (3) Atrial fibrillation Priority: Secondary Status: Chronic Qualifiers: Atrial fibrillation type: paroxysmal Qualified Code(s): I48.0 - Paroxysmal atrial fibrillation (4) Dementia Priority: Secondary Status: Chronic Qualifiers: Dementia type: Alzheimer's disease Alzheimer's disease onset: late-onset Dementia behavioral disturbance: without behavioral disturbance Qualified Code (s): G30.1 - Alzheimer's disease with late onset; F02.80 - Dementia in other diseases classified elsewhere without behavioral disturbance; F02.80 - Dementia in other diseases classified elsewhere without behavioral disturbance; F02.80 - Dementia in other diseases classified elsewhere without behavioral disturbance (5) Diabetes mellitus Priority: Secondary Status: Chronic Qualifiers: Diabetes mellitus type: type 2 Diabetes mellitus nursing home insulin use: without nursing home use Diabetes mellitus complication status: with hyperglycemia Qualified Code(s): E11.65 - Type 2 diabetes mellitus with hyperglycemia (6) Hyperlipidemia Priority: Secondary Status: Chronic Qualifiers: Hyperlipidemia type: unspecified Qualified Code(s): E78.5 - Hyperlipidemia , unspecified (7) Peripheral arterial disease Priority: Secondary Status: Chronic (8) CKD (chronic kidney disease) Priority: Secondary Status: Suspected Qualifiers: Chronic kidney disease stage: stage 3 (moderate) Qualified Code(s): N18.3 - Chronic kidney disease, stage 3 (moderate) Hospital course: Ms. Diaz is a 82 year old female with PMH CABG 2005, A.fib, CVA 3 years ago, systolic CHF EF 40-45%, dementia, HTN, CKD3, DM not insulin-dependent who presented to [facility] complaining of malaise and generalized weakness for several days. She also reported retrosternal chest pain that she was unable to elaborate on. She denied dyspnea, fever, chills, nausea, vomiting, diarrhea. Due to dementia she is alert and oriented to person only. History was primarily taken from medical records. She lives with her daughter and is unable to ambulate on her own. She stated she did have chest pain but no longer does and again was unable to elaborate on quality and duration. She had a mildly elevated troponin 0.05, 0.04, 0.06. EKG demonatrated NSR HR 68, ST depression in inferior and lateral leads, T wave inversion in anterior and septal leads, Unchanged from previous in 2017. An echo was ordered. She was last seen in cardiology office 06/[address] Zapien for a f/u however her stator plate washer at the time was Dr. Sierra. 06/2011 Pharm stress ECG: sinus jose, non diagnostic for ischemia due to non specific ST and T wave changes. 07/2013 TTE: EF 50%, mild inf HK, severely dilated LA moderate MR. New echocardiogram showed an ejection fraction of 40-45%, indeterminate diastolic function, moderate concentric LVH. Hypokinesis of the inferolateral wall. Moderate mitral regurgitation. The patient was evaluated by cardiology recommended no intervention and signed off. Blood pressure has been elevated in the 150s and 140s. Patient will be discharged on lisinopril 10 mg daily. Potassium was 3.3 and was repleted - Time Spent with Patient Total time spent providing and/or coordinating discharge services: Greater than 30 minutes (40 min) - Discharge Medications Prescriptions: Lisinopril [Zestril] 10 mg PO DAILY #30 tablet Home Medications: FLUoxetine HCl [Prozac] 40 mg PO DAILY 02/03/16 [History] Memantine HCl 10 mg PO BID 02/03/16 [History] Metoprolol Succinate [Toprol Xl] 12.5 mg PO DAILY 02/03/16 [History] Potassium Chloride [K-Tab ER] 40 meq PO DAILY 02/03/16 [History] Simvastatin [Zocor] 40 mg PO HS 02/03/16 [History] glipiZIDE [Glipizide ER] 10 mg PO DAILY 02/03/16 [History] metFORMIN [Glucophage] 500 mg PO DAILY 02/03/16 [History] Furosemide [Lasix] 20 mg PO DAILY 07/22/17 [History] Warfarin [Coumadin] 1 mg PO Q72H 07/22/17 [History] Warfarin [Coumadin] 1 mg PO Q72H 07/22/17 [History] Warfarin [Coumadin] 2 mg PO Q72H 07/22/17 [History] Lisinopril [Zestril] 10 mg PO DAILY #30 tablet 07/24/17 [Rx] Allergies/Adverse Reactions: 3 Allergy/AdvReac Type Severity Reaction Status Date / Time Sulfa (Sulfonamide Allergy Hallucinati Verified 02/03/16 10:23 Antibiotics) ng Date of admission: 07/23/17 09:27 Primary care physician: Óscar Gonzalez Jr, MD Consults: 07/23/17 13:17 PT [Consult to Physical Therapy] [CONS] Routine Comment: Evaluate, develop and implement POC Reason for Consult: weakness/ dementia/ CAD Does patient have active BEDREST order?: No Is patient medically & hemodynamically stable?: Yes Patient assessed for mobility or mobilized this visit?: No 07/23/17 13:19 Consult to Occupational Therapy [CONS] Routine Comment: Evaluate, develop and implement POC Reason for Consult: AMS/ weakness/ CAD Does patient have active BEDREST order?: No Is patient medically & hemodynamically stable?: Yes Patient assessed for mobility or mobilized this visit?: No - Constitutional Vitals: Temp Pulse Resp BP Pulse Ox 99.2 F 63 17 147/83 96 07/24/17 06:31 07/24/17 06:31 07/24/17 06:31 07/24/17 06:31 07/24/17 06:31 General appearance: Present: A&O X 1, no acute distress. Absent: answers questions appropriately - Head Head exam: Present: atraumatic, normocephalic - Eye Eye exam: Present: PERRL, conjuntiva pink, sclera anicteric Pupils: Present: PERRL - Neck Neck exam general surgery: Present: supple, trachea midline. Absent: lymphadenopathy - Respiratory Respiratory exam: Present: CTAB. Absent: accessory muscle use, rales, rhonchi, wheezes - Cardiovascular Cardiovascular exam: Present: RRR, +S1, +S2. Absent: diastolic murmur, gallop, rubs, systolic murmur - GI/Abdominal GI/Abdominal exam: Present: normal bowel sounds, soft, no peritoneal signs. Absent: distended, tenderness - Extremities Exam Extremities exam: Present: warm, radial pulses palpable and symmetrical. Absent : calf tenderness, cyanotic, pedal edema - Neurological Exam Neurological exam: Present: CN II-XII intact, no focal deficits. Absent: oriented X3, pronater drift, facial droop, speech deficit - Skin Skin exam: Present: dry, intact - Patient Status Disposition: Home Health Service Condition: Fair Overall status at discharge: patient is back to baseline - Discharge Instructions Follow Up With: Óscar Gonzalez Jr, MD [Primary Care Provider] - Additional Instructions: Follow-up with primary care physician within the next 7 days. Start lisinopril 10 mg daily. Fall precautions - Diet and Activity Activity: increase activity as tolerated Diet: diabetic diet
--- NOTE | 2017-07-24 08:19 | Physician Discharge Referral ---
Home Health/Hosp Referral Info Transfer to: Home Health Provider in Charge Post Discharge: PCP - Diagnosis (1) Chest pain Status: Acute (2) Elevated troponin Status: Acute (3) Atrial fibrillation Status: Chronic (4) Dementia Status: Chronic (5) Diabetes mellitus Status: Chronic (6) Hyperlipidemia Status: Chronic (7) Peripheral arterial disease Status: Chronic (8) CKD (chronic kidney disease) Status: Suspected - Respiratory Orders Smoking Cessation: Smoking cessation has been advised. For more information, call the [place] Tobacco Quit Line at 8-142-NAGA-NOW. - Diet/Nutrition Diet/Nutrition Orders: No Added Salt (CISCO) - Services Needed Following services are medically necessary services: Physical Therapy, Occupational Therapy Home Care Orders: Follow-up with primary care physician within the next 7 days. Start lisinopril 10 mg daily. Fall precautions - Transfer Medications Prescriptions: Lisinopril [Zestril] 10 mg PO DAILY #30 tablet Home Medications: FLUoxetine HCl [Prozac] 40 mg PO DAILY 02/03/16 [History] Memantine HCl 10 mg PO BID 02/03/16 [History] Metoprolol Succinate [Toprol Xl] 12.5 mg PO DAILY 02/03/16 [History] Potassium Chloride [K-Tab ER] 40 meq PO DAILY 02/03/16 [History] Simvastatin [Zocor] 40 mg PO HS 02/03/16 [History] glipiZIDE [Glipizide ER] 10 mg PO DAILY 02/03/16 [History] metFORMIN [Glucophage] 500 mg PO DAILY 02/03/16 [History] Furosemide [Lasix] 20 mg PO DAILY 07/22/17 [History] Warfarin [Coumadin] 1 mg PO Q72H 07/22/17 [History] Warfarin [Coumadin] 1 mg PO Q72H 07/22/17 [History] Warfarin [Coumadin] 2 mg PO Q72H 07/22/17 [History] Lisinopril [Zestril] 10 mg PO DAILY #30 tablet 07/24/17 [Rx] Allergies/Adverse Reactions: 3 Allergy/AdvReac Type Severity Reaction Status Date / Time Sulfa (Sulfonamide Allergy Hallucinati Verified 02/03/16 10:23 Antibiotics) ng Certification: Further, I certify that my clinical findings support that this patient is homebound (i.e. absences from home require considerable and taxing effort and are for medical reasons or scientology services or infrequently or short duration when for other reasons) because: Homebound Reason: Patient requires assistance of a person or device to safely leave home Attestation: My signature below is to certify that this patient is under my care and that I, or nurse practitioner, or a physician's assistant professor of economics working with me, has a face-to -face encounter with this patient.
[2017-07-24] MEDS: Metoprolol XL (24 HR) Succ 25 MG TAB.ER.24H PO SCH (08:27)
[2017-07-24] MEDS: Aspirin Enteric Coated 81 MG Tablet PO SCH (08:28)
[2017-07-24] MEDS: FLUoxetine 20 MG CAPSULE PO SCH (08:28)
--- NOTE | 2017-07-24 08:32 | Physician Discharge Referral ---
[facility] Referral Info Provider in Charge after Transfer: PCP Institutional Level of Care: Skilled - Diagnosis (1) Chest pain Status: Acute (2) Elevated troponin Status: Acute (3) Atrial fibrillation Status: Chronic (4) Dementia Status: Chronic (5) Diabetes mellitus Status: Chronic (6) Hyperlipidemia Status: Chronic (7) Peripheral arterial disease Status: Chronic (8) CKD (chronic kidney disease) Status: Suspected - Transfer Medications Prescriptions: Lisinopril [Zestril] 10 mg PO DAILY #30 tablet Home Medications: FLUoxetine HCl [Prozac] 40 mg PO DAILY 02/03/16 [History] Memantine HCl 10 mg PO BID 02/03/16 [History] Metoprolol Succinate [Toprol Xl] 12.5 mg PO DAILY 02/03/16 [History] Potassium Chloride [K-Tab ER] 40 meq PO DAILY 02/03/16 [History] Simvastatin [Zocor] 40 mg PO HS 02/03/16 [History] glipiZIDE [Glipizide ER] 10 mg PO DAILY 02/03/16 [History] metFORMIN [Glucophage] 500 mg PO DAILY 02/03/16 [History] Furosemide [Lasix] 20 mg PO DAILY 07/22/17 [History] Warfarin [Coumadin] 1 mg PO Q72H 07/22/17 [History] Warfarin [Coumadin] 1 mg PO Q72H 07/22/17 [History] Warfarin [Coumadin] 2 mg PO Q72H 07/22/17 [History] Lisinopril [Zestril] 10 mg PO DAILY #30 tablet 07/24/17 [Rx] Allergies/Adverse Reactions: 3 Allergy/AdvReac Type Severity Reaction Status Date / Time Sulfa (Sulfonamide Allergy Hallucinati Verified 02/03/16 10:23 Antibiotics) ng - Respiratory Orders Smoking Cessation: Smoking cessation has been advised. For more information, call the [place] Tobacco Quit Line at 3-054-ZMGM-NOW. - Advance Directives Code Status: DNR-Arrest/Don't Intubate - Treatments List/Other: Follow-up with primary care physician within the next 7 days. Start lisinopril 10 mg daily. Fall precautions - Diet Orders No Added Salt (CISCO) CERTIFICATION: I certify that the transfer of the above named patient to an Extended Care Facility is necessary for the continuing treatment of the diagnosis listed. The above information is true and accurate reflection of patient's current condition. Confidential - Redisclosure prohibited without a patient's written consent.
[2017-07-24] MEDS ORDERED: amLODIPine 5 MG TABLET PO SCH (09:00)
[2017-07-24 14:53] VITALS: BP 138/71
[2017-07-24] MEDS ORDERED: *HR* Warfarin 2 MG TABLET PO ONE (18:00)
== END 2017-07-24 15:49 | disposition home health service (06) ==
LOC: 2NENU 12:30 → EMEROO 12:30 → 2NENU 19:06
PROVIDERS: ADMIT Internal Medicine; ATTEND Internal Medicine